=== PATIENT | male | born 1930 | race Caucasian/White ===

== ENCOUNTER 2016-08-11 17:32 | Inpatient (IN) | payer MEDICARE ==
[~2016-08-11] VITALS: Ht 172.7 cm; Wt 82.3 kg
[2016-08-11 17:40] VITALS: BP 113/55; PULSE 87; RESP 20; O2SAT 86
[2016-08-11 18:05] LABS: BASOPHILS % (AUTO) 0.4 % (0-3); EOSINOPHILS % (AUTO) 1.3 % (0-5); MONOCYTES % (AUTO) 7.7 % (4-12); Mean Corpuscular Hemoglobin 33.6 pg (27.0-35.0); NEUTROPHILS % (AUTO) 63.7 % (40-74); Platelet Count 305 bil/L (150-400)
--- NOTE | 2016-08-11 18:09 | ED.REPORT ---
HPI-Chest Pain 40 and Over Date of Service Aug 11, 2016 ED Provider: Jack Barrera DO 85-year-old male presents via EMS for evaluation of chest pain. Initially Dr. Lee Ceballos took report from the medics. Evidently Mr. Paiz had severe substernal chest pain to the point were nearly brought him to tears. EMS administered IV fentanyl and he presented the emergency department essentially pain-free. He was however quite sedate due to the fentanyl. EKG on presentation is highly suspicious for acute ischemia with diffuse ST depression. Dr. Ceballos will be going off shift at 6 PM so therefore I will be managing the case from here. Evidently Mr. Paiz has a pulsed form that shows that he is a DO NOT RESUSCITATE. It also documents that he has chosen to have comfort measures only. I will discuss this with him and his family as well. Pain onset 4 days ago, the patient went 3 days without symptoms, and then they showed up again today. Patient reports that symptoms originally onset in April or March. Pain is described as burning and fire on the inside. Pain is exacerbated by pressing on the patient's chest. Associated symptoms include productive cough. The patient has not had symptoms like this in the past. He visited his doctor 1 week ago and had EKG and XRay performed. Nursing Notes Stated Complaint: CHEST PAIN Chief Complaint: Chest Pain Nursing Notes Reviewed: Yes Allergies: Coded Allergies: No Known Allergies (Unverified , 08/11/16) Scheduled Metoprolol Tartrate (Metoprolol Tartrate) 100 Mg Tablet 100 MG PO BID Omeprazole (Omeprazole) 20 Mg Capsule. 20 MG PO DAILY General Time Seen by MD: 17:52 Chief Complaint Chest pain Hx Obtained From: Patient, Daughter, EMS Arrived By: Ambulance Sudden in Onset?: Yes Onset Occurred: 4 days ago Symptom Duration: Since onset Severity: Current: Moderate Severity: Maximum: Moderate Recent Healthcare: No recent doctor visit Similar Sx Previous: No Past Medical History Past Medical History Notes: Rosetta Bruno is healthcare provider. Past Medical History Anxiety of being in hospital. Emphysema was recently found in lungs. Daughter denies any recent pneumonia. Patient thinks that he may have had AL in the past, but this has not been confirmed. Patient had prior EKG done at [facility]. Partials, but no dentures. Reports: Hypertension Past Surgical History None reported. Social History is power of estate planning attorney. Patient is DNR and has comfort measure only in place. Alcohol Use: "Social" Other Social History: Smokeless tobacco Ambulatory Status Independent Review of Systems Review of Systems Note: Head and neck are negative. Constitutional: Denies: Chills, Fever Respiratory: Reports: Prod cough, green Cardiovascular: Reports: Chest pain Musculoskeletal: Denies: Extremity pain, Extremity swelling Complete sys rev & neg: except as marked. Physical Exam Physical Exam Notes: Initial Vital Signs Vital Signs (First) Date Time Temp Pulse Resp B/P Pulse Ox O2 Delivery O2 Flow Rate FiO2 08/11/16 17:40 35.0 87 20 113/55 86 Nasal Cannula 8 Initial VS: Reviewed General/Constitutional: Awake, Alert Distress / Hydration: Positive: Distress mild Patient does not want label folder or admission to hospital. Respiratory / Chest: Atraumatic Coarse breath sounds bilaterally. Patient has frequent cough. Patient has pulse ox of 86% and is hypoxic. Respirtory rate is 20. Patient has burning chest pain. Abdomen: Atraumatic, No guarding, No rebound Neck: Atraumatic, Non-tender Lower Extremity / Pelvis / MS: Inspection NL, No edema (No leg edema. ) Skin: Color NL, Warm, Dry Neurologic: Oriented X3, Speech NL Head / Eyes: Normocephalic, PERRL, EOMI ENT: Atraumatic, Airway patent Interpretation & Diagnostics Lab Results Interpretation Result Diagram: 08/11/16174808/11/161748 Test 08/11/16 17:49 White Blood Count 18.1th/mm3 (3.8-10.1) Red Blood Count 4.46mil/mm3 (4.40-5.80) Hemoglobin 15.0g/dL (13.8-17.2) Hematocrit 44.6% (41.0-50.0) Mean Corpuscular Volume 100.0fL (81-100) Mean Corpuscular Hemoglobin 33.6pg (27.0-35.0) Mean Corpuscular Hemoglobin Concent 33.6% (32.0-37.0) Red Cell Distribution Width 12.6% (12.3-15.4) Platelet Count 305bil/L (150-400) Neutrophils (%) (Auto) 63.7% (40-74) Lymphocytes (%) (Auto) 26.6% (14-46) Monocytes (%) (Auto) 7.7% (4-12) Eosinophils (%) (Auto) 1.3% (0-5) Basophils (%) (Auto) 0.4% (0-3) D-Dimer 57.2mg/L FEU (<0.50) Sodium Level 137mEq/L (134-144) Potassium Level 4.9mEq/L (3.5-5.2) Chloride Level 101mEq/L (97-108) Carbon Dioxide Level 19mmol/L (18-29) Blood Urea Nitrogen 14mg/dL (8-27) Creatinine 1.12mg/dL (0.76-1.27) Estimat Glomerular Filtration Rate 67mL/min (>59) Glucose Level 174mg/dL (60-99) Hemoglobin A1c 5.8% (4.8-5.6) Calcium Level 9.3mg/dL (8.5-10.1) Magnesium Level 2.2mg/dL (1.6-2.6) Total Bilirubin 0.7mg/dL (0.0-1.2) Aspartate Amino Transf (AST/SGOT) 48U/L (0-50) Alanine Aminotransferase (ALT/SGPT) 37U/L (0-44) Alkaline Phosphatase 99U/L (25-160) Troponin T 0.055ug/L (0.0-0.011) Pro-B-Type Natriuretic Peptide 3096pg/mL (0-486) Total Protein 7.8g/dL (6.4-8.4) Albumin 3.6g/dL (3.4-5.0) ECG Interpretation ECG Interpretation: Rate is 89. Sinus rythm. Diffuse ST depression. Lateral leads. Time: 18:06 Interpreted by: ED physician X-Ray Chest Interpretation Chest Xray Interpretation: ED Physician Wet Read: IMPRESSION: Middle lobe pneumonia. 08/11/2016, 1827 Radiologist Interpretation: IMPRESSION: 1. Diffuse interstitial opacities which may be associated with fluid overload. 2. Focal right basilar pulmonary radiopacities suspicious for aspiration/infection. Short interval followup is recommended with resolution of the patient's symptoms to ensure there is no underlying pulmonary pathology. Dictated by: Shireen Kinsey M.D. on 08/11/2016 at 18:21 Approved by: Shireen Kinsey M.D. on 08/11/2016 at 18:30 Interpretation / Wet Read by: Wet read ED physician, Interpret - Radiologist Procedures Intubation Procedure Performed by: ED physician Consent / Setup / Site Prep: Informed consent provided, Consent from patient , Consent from spouse, Time-out performed, Hand hygiene observed Patient Position: Neutral position Blade / ET Tube / Route: Mac, ET tube cuffed (7.5) Procedural Sedation/Analgesia: Sedation: Etomidate, Sedation: Versed, Analgesia: Fentanyl Neuromuscular Agent: Succinylcholine ET Confirmation: Direct visualization, BS equal, End tidal CO2 device, Rising O2 sat Secured / Marked: ET tube device, Adhesive tape, Tube marked at teeth Complications: None Post-Procedure: Tolerated procedure well Re-Eval/Medical Decision Med Decision/Clinical Course Mr. Melecio Paiz presented to the emergency department in acute respiratory distress. Associated symptoms include severe left sided chest pain. He was found to have evidence of a non-STEMI, pneumonia and possibly pulmonary emboli or lung cancer. He came in with a POLST form is DO NOT RESUSCITATE and DO NOT INTUBATE. Essentially comfort measures. IV opiates were given and he was initially had some semblance of pain control however the pain returned with a vengeance. He was treated with antibiotics, heparin and opitates and duonebs. His work of breathing increased severely and he seemed to be suffering significantly. After discussing with his and his daughter they have decided to rescind his pulsed form. They asked me to intubate Mr. Paiz. I asked him if this was okay and he verbalized yes. He was rapid sequence intubated without difficulty. Symmetric breath sounds. Good color change on CO2 monitor. However shortly after intubating he suffered a V. tach and then a pulseless electrical activity arrest. He was initially defibrillated followed by doses of atropine and epinephrine. Family was adamant no chest compressions and we honored this as it was consistent with Mr. Paiz's. Wishes. Family was brought back. They were there with him up to the end. He had no return of spontaneous circulation in spite of epinephrine and atropine. He was in a PE a disorganized rhythm with a rate of about 30 with no pulses. He was pronounced . Cause of pneumonia possible PE and non-STEMI. Source of Hx: Old records, EMS Time of Eval: 18:21 Re-Evaluation/Progress Note: Explained plan to treat for infamzema. Patient understands and agrees with the plan. Explained plan to keep patient informed about every decision made. Explained plan to give more fentanyl. Explained plan for admission. Time of Eval: 18:47 Re-Evaluation/Progress Note: Rechecked patient, explained test results, diagnosis, and plan for asdmission. Patient understands and agrees with the plan. All questions addressed. Patient reiterated that they do not want label folder or CPR, but will recieve medical treatment. Time of Eval: 19:32 Re-Evaluation/Progress Note: Rechecked patient who is in pain. Patient is given IV pain relief. Explained plan to potentially intubate patient after pulse form with DNR is analysed. Time of Eval: 19:45 Re-Evaluation/Progress Note: Rechecked patient who looks improved. Time of Eval: 21:26 Re-Evaluation/Progress Note: Patient was intubated, suffered V tach arrest, followed by pulses of electric activity, and is now . Family was brought to bedside and informed of the care that was provided. Time of : 2114. Consultation #1: Referral / Consult Name: Renny Land MD Call Returned at: 19:19 Teacher Asst: Agrees with eval, Agrees with plan, Accepts admit Note: Discussed patient case with Dr. Land who accepts patient admit. Consultation #2: Call Returned at: 19:46 Note: Discussed patient case with Dr. Land who agrees with plan to hold off on intubation. Counseled Regarding: Diagnosis, Lab results, Need for follow-up, Need for admission Discharge & Departure Primary Impression: Cardiopulmonary arrest Additional Impressions: Pneumonia Pneumonia type: due to unspecified organism Laterality: right Lung location : middle lobe of lung Qualified Code: J18.1 - Lobar pneumonia, unspecified organism Non-STEMI (non-ST elevated myocardial infarction) Respiratory failure requiring intubation Disposition: Discharge Condition All VS Reviewed: Yes Condition: Referrals: [facility] Crit Care Except Billable Proc Time Spent: 75-104 minutes Services Performed: Patient management by me, Time spent at bedside, Reviewing test results, Reviewing imaging, Discussing patient care, Documentation in record, Time with fam/surrogate, Other Scribe Attestation Portions of this note were transcribed by Rakesh Reynolds. IDr. Barrera personally performed the history, physical exam and medical decision-making; I reviewed and confirmed the accuracy of the information in the transcribed note. Signed by: Rigo Diaz, 08/11/2016, 0204. copies to: [facility] Jack Barrera DO Aug 11, 2016 18:09 Rakesh Reynolds Aug 11, 2016 18:21
[2016-08-11 18:17] VITALS: BP 124/91; PULSE 97; RESP 19; O2SAT 97
[2016-08-11] MEDS ORDERED: MethylprednisoLONE Sodium Succinate 62.5 mg/mL 2 mL Inj IVPUSH ONE (18:25)
[2016-08-11] MEDS ORDERED: fentaNYL-PF 50 mCg/mL 2 mL Inj IVPUSH PRN (18:25)
[2016-08-11] MEDS ORDERED: Albuterol-Ipratropium 3 mL Inhalation Solution NEB ONE (18:25)
[2016-08-11 18:30] LABS: Magnesium 2.2 mg/dL (1.6-2.6)
[2016-08-11] MEDS ORDERED: Azithromycin Inj 500 MG in Dextrose 5% w/Vial Mate 250 ML IV ONE (18:30)
[2016-08-11] MEDS ORDERED: cefTRIAXone Inj 2,000 MG in Dextrose 5% Minibag Plus 50 ML IV ONE (18:30)
--- NOTE | 2016-08-11 18:31 | DRSVH ---
PROCEDURE: X-RAY CHEST ONE VIEW, PORTABLE ([id number]) INDICATIONS: chest pain TECHNIQUE: One view of the chest was acquired. COMPARISON: [facility], , CHEST 2VW, 08/30/2014, 12:03. FINDINGS: Surgical changes and devices: None. Lungs and pleura: There are diffuse interstitial opacities. Focal pulmonary radiopacities are present at the right lung base. Mediastinum: Mediastinal contours appear normal. Heart size is normal. Bones and chest wall: No suspicious bony lesions. Overlying soft tissues appear unremarkable. IMPRESSION: 1. Diffuse interstitial opacities which may be associated with fluid overload. 2. Focal right basilar pulmonary radiopacities suspicious for aspiration/infection. Short interval fo llowup is recommended with resolution of the patient's symptoms to ensure there is no underlying pulm onary pathology. Dictated by: Shireen Kinsey M.D. on 08/11/2016 at 18:21 Approved by: Shireen Kinsey M.D. on 08/11/2016 at 18:30
[2016-08-11 18:35] LABS: TROPONIN T 0.055 ug/L (0.0-0.011)
[2016-08-11] MEDS ORDERED: Heparin 5,000 Unit/mL Inj IVPUSH PRN (18:55)
[2016-08-11] MEDS ORDERED: Heparin 25K Unit/500mL 0.45 NS 25,000 UNIT in IV Premix 1 EACH IV SCH (18:55)
[2016-08-11 18:59] VITALS: PULSE 98; RESP 22; O2SAT 90
[2016-08-11] MEDS ORDERED: HYDROmorphone 0.5 mg/0.5 mL iSecure Syringe IVPUSH PRN (19:30)
[2016-08-11] MEDS ORDERED: Ondansetron 2 mg/mL 2 mL Inj IVPUSH PRN ×2 (19:30→19:35)
[2016-08-11] MEDS ORDERED: Polyethylene Glycol (PEG) 17 Gm Powder PO PRN (19:35)
[2016-08-11] MEDS ORDERED: Alum-Mag Hydrox-Simeth 30 mL Suspension PO PRN (19:35)
[2016-08-11] MEDS ORDERED: METO100T3 PO (19:52)
[2016-08-11] MEDS ORDERED: OMEP20CA11 PO (19:52)
[2016-08-11] MEDS ORDERED: Albuterol 2.5 mg/3 mL Inhalation Solution NEB ONE (20:05)
[2016-08-11 20:13] VITALS: PULSE 111; RESP 25; O2SAT 88
[2016-08-11] MEDS ORDERED: Heparin 1,000 Units/mL 10 mL DVT/PE Bolus Inj IVPUSH ONE (20:15)
[2016-08-11 20:22] VITALS: PULSE 120; RESP 34; O2SAT 86
[2016-08-11 20:45] VITALS: BP 90/51; PULSE 110; RESP 29; O2SAT 86
[2016-08-11] MEDS ORDERED: Vecuronium 1,000 mCg/mL 10 mL Inj ONE (20:57)
[2016-08-11] MEDS ORDERED: fentaNYL-PF 50 mCg/mL 2 mL Inj ONE (21:17)
[2016-08-11] MEDS ORDERED: EPINEPHrine 0.1 mg/mL 10 mL Syringe ONE (21:29)
[2016-08-11] MEDS ORDERED: 0.9% Sodium Chloride 10 mL Inj ONE (21:29)
[2016-08-11] MEDS ORDERED: Atropine 1 mg/10 mL (Code) Syringe ONE (21:29)
[2016-08-11] MEDS ORDERED: Succinylcholine Chloride 20 mg/mL 5 mL Inj ONE (21:29)
--- NOTE | 2016-08-11 21:51 | PCM.HPMED ---
Subjective Date of Service Aug 11, 2016 Primary Provider: Admitting Physician: Renny Land MD Primary Care Physician: Skip Attending Physician: Renny Land MD Admit Status: From the Emergency Department Chief Complaint: Chest pain History of Present Illness: 85 y/o male with a history of hypertension, anxiety and recent chest xray findings consistent with emphysema who presented to the ED via EMS in respiratory distress with the complaint of worsening chest pain. History obtained via patient's and daughter due to patient condition at time of admission. Per the family, the patient has had a persistent and non-productive cough for the past several weeks. Today his cough has been productive for green sputum and accompanied with worsening shortness of breath. Associated symptoms include increasing shortness of breath and episodes of chest tightness and anxiety that are relieved over time without intervention. Per the patient's daughter, he was evaluated by his PCP recently and was told he had chest xray findings suggestive of emphysema. She states that the patient continues to smoke and is avoids doctors. However, she states that he is relatively healthy, stays quite active and until recently was without complaint. She works as a social services analyst at a local hospital and her is a nurse. She states that she initially thought these episodes of respiratory distress and chest tightness were possible due to esophageal spasms. She states that he patient has been taking omeprazole without relief. He has described his chest pain as a burning sensation associated with pain in his arms bilaterally, diaphoresis and mild nausea. Of note, patient's daughter and also report that the patient has anxiety and a fear of hospitals. Which is why, she believes the patient has expressed his wishes for code status to be DNR/DNI. However, she states that she believes he would want intervention and states that she is his DPOA. The patient is decisional and his and daughter agree, all should be in agreement before changes are made to his code status. Patient has stated that he is DNR/DNI with comfort measures only in the past. In the ED, vitals 35.0, BP 113/55, pulse 87, RR 20, SpO2 86% on 8-10L nasal cannula. Labs significant for a troponin of 0.055, D-dimer 57.2, proBNP 3096, wbc 18.1, H/H 15.0/44.6, plts 305, sodium 137, potassium 4.9, chloride 101, bicarb 19, BUN 14, creatinine 1.12, serum glucose 174. ECG showing sinus rhythm with a rate of [address] depression in lateral leads. Chest xray with diffuse interstitial opacities suggestive of fluid overload and focal right basilar opacities suspicious for pneumonia or aspiration. Patient was started on Heparin gtt and received 2g of IV ceftriaxone as well as 500mg IV azithromycin, 125mg of IV solu-medrol, fentanyl IV pushes for pain and Duonebsx2. Review of Systems: A comprehensive review of systems was conducted with the patient and found to be negative except as above in the History of Present Illness. Allergies Coded Allergies: No Known Allergies (Unverified , 08/11/16) Home Medications Metoprolol tartrate 100mg PO BID Flovent HFA (fluticasone proprionate) 220mcg inhale 2 puff BID Excedrin extra strength 250mg/250mg/65mg (aspirin/acetaminophen/caffeine) PMH Hypertension Anxiety Possible [place] in the past, unconfirmed, prior EKG done at [facility], diagnosed recently following chest xray. Surgical History Denies Family History Denies hx of diabetes. Unable to confirm additional family history secondary to patient condition. Social History Hx Alcohol Use: No Hx Substance Use: No Smoking Status: Current Some Day Smoker (1-5 cigarettes a day several days per week, up to 1/2ppd on occasion) Living Arrangement: with Family Exam Vital Signs Vital Sign - Last Date Time Temp Pulse Resp B/P Pulse Ox O2 Delivery O2 Flow Rate FiO2 08/11/16 18:59 98 22 90 Non-Rebreather 08/11/16 18:17 124/91 7 08/11/16 17:40 35.0 Exam Gen: Pale and ill-appearing (non-toxic), elderly male in moderate respiratory distress on 10L oxymask; one word answers. HEENT: Normocephalic, atraumatic, PERRLA, no scleral icterus, oral mucosa dry, oral secretions at corners of mouth Neck: No JVD, bruits or lymphadenopathy appreciated. However, this was difficult to asses due to patient's respiratory status/use of accessory muscles. Cardiac: Somewhat distant heart tones, RRR with no murmurs or gallops heard. Lungs: Increased respiratory effort w/use of accessory muscles, lungs sounds are coarse with diffuse wheezing throughout. Abd: Soft, nondistended, patient winces some with palpation but does not appear to be in pain, bowel tones present, no organomegaly or masses. Ext: Distal pulses intact/equal bilaterally. No clubbing, cyanosis, or edema. Skin: Cool, damp, no rashes or ulcerations Neuro: Difficult to assess due to patient condition. No obvious focal deficits, moving all four extremities. Responsive and able to nod or use one answers, short phrases. Lab and Diagnostics Labs Laboratory Tests Test 08/11/16 17:49 White Blood Count 18.1th/mm3 (3.8-10.1) Red Blood Count 4.46mil/mm3 (4.40-5.80) Hemoglobin 15.0g/dL (13.8-17.2) Hematocrit 44.6% (41.0-50.0) Mean Corpuscular Volume 100.0fL (81-100) Mean Corpuscular Hemoglobin 33.6pg (27.0-35.0) Mean Corpuscular Hemoglobin Concent 33.6% (32.0-37.0) Red Cell Distribution Width 12.6% (12.3-15.4) Platelet Count 305bil/L (150-400) Neutrophils (%) (Auto) 63.7% (40-74) Lymphocytes (%) (Auto) 26.6% (14-46) Monocytes (%) (Auto) 7.7% (4-12) Eosinophils (%) (Auto) 1.3% (0-5) Basophils (%) (Auto) 0.4% (0-3) D-Dimer 57.2mg/L FEU (<0.50) Sodium Level 137mEq/L (134-144) Potassium Level 4.9mEq/L (3.5-5.2) Chloride Level 101mEq/L (97-108) Carbon Dioxide Level 19mmol/L (18-29) Blood Urea Nitrogen 14mg/dL (8-27) Creatinine 1.12mg/dL (0.76-1.27) Estimat Glomerular Filtration Rate 67mL/min (>59) Glucose Level 174mg/dL (60-99) Calcium Level 9.3mg/dL (8.5-10.1) Magnesium Level 2.2mg/dL (1.6-2.6) Total Bilirubin 0.7mg/dL (0.0-1.2) Aspartate Amino Transf (AST/SGOT) 48U/L (0-50) Alanine Aminotransferase (ALT/SGPT) 37U/L (0-44) Alkaline Phosphatase 99U/L (25-160) Troponin T 0.055ug/L (0.0-0.011) Pro-B-Type Natriuretic Peptide 3096pg/mL (0-486) Total Protein 7.8g/dL (6.4-8.4) Albumin 3.6g/dL (3.4-5.0) Result Diagram: 08/11/16 [id number] X-Rays, CTs and MRIs X-RAY CHEST ONE VIEW, PORTABLE IMPRESSION: 1. Diffuse interstitial opacities which may be associated with fluid overload. 2. Focal right basilar pulmonary radiopacities suspicious for aspiration/ infection. Short interval followup is recommended with resolution of the patient 's symptoms to ensure there is no underlying pulmonary pathology. Dictated by: Shireen Kinsey M.D. on 08/11/2016 at 18:21 Approved by: Shireen Kinsey M.D. on 08/11/2016 at 18:30 Assessment & Plan 85 y/o male with a hx of hypertension, anxiety and recent chest xray findings consistent with emphysema who presented to the ED via EMS in respiratory distress with the complaint of worsening chest pain. Admitted for further management and evaluation of pneumonia and possible NSTEMI. 1. Acute NSTEMI, poa. Active -risks: age, tobacco smoking, hypertension -no known CAD or prior hx of similar episode, but positive hx of dyspnea and exertional chest pain -EKG showing NSR w/rate 89, diffuse ST depression lateral leads. CXR findings suggestive of fluid overload and right basilar consolidation. -troponin 0.055, proBNP 3096, D-dimer 57.2, potassium 4.9, magnesium 2.2 -in ED: started on heparin gtt, IV fentanyl pushes for pain. -admit to PCC with telemetry -stat atorvastatin, metoprolol -continue heparin gtt and oral aspirin -SL nitro prn and IV morphine prn as long as BP tolerates -serial trop and EKG -NPO for possible procedures -lipid panel pending -will add TSH 2. Community acquired pneumonia, poa. Active. -Patient c/o productive cough, worsening shortness of breath, diaphoresis. -Afebrile at presentation with a WBC of 18.1 and hypoxia -Chest xray as above. -Procalcitonin pending -Will add urine antigens, resp viral PCR -Received IV ceftriaxone and azithromycin, solu-medrol and duonebs in the ED. -Continue IV antibiotics -Duonebs q4h, albuterol q2h prn -Repeat chest xray, CBC and procalcitonin in the morning 3. Elevated D-dimer, poa. Active -D-dimer 57.2 -heparin gtt as above -CT angio ordered 4. Hyperglycemia, poa. Active -Patient without prior diagnosis of diabetes. -glucose on admission 174 -HbA1c pending -CMP in the morning 5. Hx of anxiety, poa. Active -per the family, increased anxiety related to hospitals and doctors. -patient is decisional, daughter is DPOA -consider consult to palliative care if disagreement regarding CODE STATUS persists. 6. Hypertension (chronic), poa. Ongoing -continue home metoprolol 7. Hx of emphysema, poa. Ongoing. -no official diagnosis of COPD or emphysema, reportedly told of findings consistent with emphysema following recent CXR. -patient not on home oxygen or require inhalers. CODE STATUS: DNR/DNI, discussed with family. FEN: NPO DVT Prophylaxis: Pt on heparin gtt for possible NSTEMI PRN: Acetaminophen-fever/headache/mild/moderate pain Antiemetics, as needed Bowel regimen, as needed. Disposition: Patient admitted under inpatient status with expected length of stay > 2 midnights for severity of present symptoms, complexities of treatment plan and risk for adverse event. Pain Evaluation: Adequate Pain Control GI Prophylaxis: Not indicated VTE Prophylaxis: Other (heparin gtt) Resuscitation Status: DNR/DNI:Do Not Resuscitate/Intubate Attending Statement The patient was seen and examined together with Dr. Luna on 08/11 and I agree with the history, exam and plan as outlined in the note above. Magnolia Luna DO Aug 11, 2016 19:29 Renny Land MD Aug 11, 2016 23:12
--- NOTE | 2016-08-12 02:04 | PCM.DC.MEX ---
Discharge Summary Date of Service Aug 12, 2016 Dates of Hospitalization Date of Hospital Admission Aug 11, 2016 at 19:31 Date of Expiration: Aug 11, 2016 Time of Expiration: 21:15 Providers: Admitting Physician: Renny Land MD Primary Care Physician: Skip Attending Physician: Rneny Land MD Diagnosis at Time of Cardiac arrest and acute hypoxic respiratory failure. Additional Diagnosis 1. Acute NSTEMI 2. Community acquired pneumonia 3. Hyperglycemia 4. Chronic hypertension 5. Hx of emphysema Procedures XRay, CTs & MRIs X-RAY CHEST ONE VIEW, PORTABLE IMPRESSION: 1. Diffuse interstitial opacities which may be associated with fluid overload. 2. Focal right basilar pulmonary radiopacities suspicious for aspiration/ infection. Short interval followup is recommended with resolution of the patient 's symptoms to ensure there is no underlying pulmonary pathology. Dictated by: Shireen Kinsey M.D. on 08/11/2016 at 18:21 Approved by: Shireen Kinsey M.D. on 08/11/2016 at 18:30 ECG 12 Lead EKG-normal sinus rhythm with rate of 89, diffuse ST depression in lateral leads. Brief History Per admission H&P, August 11, 2016. Mr. Majano is an 85 year-old male with a history of hypertension, anxiety and recent chest xray findings consistent with emphysema who presented to the ED via EMS in respiratory distress with the complaint of worsening chest pain. History was obtained via the patient's and daughter due to patient condition at time of admission. Per the family, the patient has had a persistent and non-productive cough for the past several weeks. Today his cough has been productive for green sputum and accompanied with worsening shortness of breath. Associated symptoms include increasing shortness of breath and episodes of chest tightness and anxiety that are relieved over time without intervention. Per the patient's daughter, he was evaluated by his PCP recently and was told he had chest xray findings suggestive of emphysema. She states that the patient continues to smoke and tends to avoid doctors. However, she states that he is relatively healthy, stays quite active and until recently was without complaint. She works as a social work instructor at a local hospital and her is a nurse. She states that she initially thought these episodes of respiratory distress and chest tightness were possibly due to esophageal spasms. However, she states that the patient has been taking omeprazole without relief. Patient has described his chest pain as a burning sensation that is associated with pain in his arms bilaterally, diaphoresis and mild nausea. Of note, patient's daughter and also report that the patient has anxiety and a fear of hospitals. Which is why, she believes the patient has expressed his wishes for his code status to be DNR/DNI. However, she states that she believes he would want intervention and states that she is his DPOA. The patient is decisional and his and daughter agree, all should be in agreement before changes are made to his code status. Patient has stated that he is DNR/DNI with comfort measures only in the past. In the ED, vitals 35.0, BP 113/55, pulse 87, RR 20, SpO2 86% on 8-10L nasal cannula. Labs significant for a troponin of 0.055, D-dimer 57.2, proBNP 3096, wbc 18.1, H/H 15.0/44.6, plts 305, sodium 137, potassium 4.9, chloride 101, bicarb 19, BUN 14, creatinine 1.12, serum glucose 174. ECG showing sinus rhythm with a rate of [address] depression in lateral leads. Chest xray with diffuse interstitial opacities suggestive of fluid overload and focal right basilar opacities suspicious for pneumonia or aspiration. Patient was started on Heparin gtt and received 2g of IV ceftriaxone as well as 500mg IV azithromycin, 125mg of IV solu-medrol, fentanyl IV pushes for pain and Duonebsx2. Hospital Course 85 y/o male with a hx of hypertension, anxiety and recent chest xray findings consistent with emphysema who presented to the ED via EMS in respiratory distress with the complaint of worsening chest pain. Admitted for further management and evaluation of pneumonia and possible NSTEMI.Per the patient's family he has stated in the past that he wishes to be DNR/DNI. However, his daughter is his DPOA and states that he may want short term intervention. While the patient was still in the Emergency Department, he continued to decompensate. He was tachypneic, tachycardic and hypoxic despite 9L nonrebreather oxymask and nebulizer treatments. His work of breathing increased significantly and began to show signs of respiratory fatigue. The patient's family opted for intubation and the patient was moved to a bigger room. Per review of nursing notes: He received 5ml of succinylhchol and 100ml of etomidate , was successfully intubated and give 7ml vecoronium. After which the patient went into vfib and was shocked once before the family decided to stop resuscitation efforts and requested comfort care. He was given IV pushes of atropine and epinephrine and started on an epinephrine drip and the patient family decided to extubate. Patient at 21:15 with family at bedside. Additional diagnosis and plan prior management in the PCC. Patient in the ED prior to transfer to the floor. 1. Acute NSTEMI, present on admission. -Patient without known CAD or prior hx of similar episode, but positive hx of dyspnea and exertional chest pain. -risks: age, tobacco smoking, hypertension. -EKG showed NSR with a rate of [address] depression lateral leads. -CXR with findings suggestive of fluid overload and right basilar consolidation. -Initial labs: troponin 0.055, proBNP 3096, D-dimer 57.2, potassium 4.9, magnesium 2.2 -In the ED: patient was started on heparin gtt, IV fentanyl pushes for pain. -Plan was to admit to PCC with telemetry and start atorvastatin, metoprolol and continue heparin gtt -SL nitro prn and IV morphine prn as long as BP tolerates -Serial trop and EKG -Patient was to be NPO for possible procedures -TSH, Lipid panel ordered 2. Community acquired pneumonia, present on admission. -Patient presented with a productive cough, worsening shortness of breath, chest pain and diaphoresis. -He was afebrile at presentation with a WBC of 18.1 and hypoxia -Chest xray as above. -Procalcitonin ordered -Planned to add urine antigens, resp viral PCR -Patient received IV ceftriaxone and azithromycin, solu-medrol and duonebs in the ED. -Would have continued IV antibiotics, Duonebs q4 and albuterol q2h as needed and repeated CXR, CBC and procalcitonin. 3. Elevated D-dimer, present on admission. -D-dimer was 57.2, patient was started on a heparin drip and a CT angio was ordered. 4. Hyperglycemia, present on admission. -Patient without prior diagnosis of diabetes and serum glucose on admission of 174. -HbA1c ordered and pending at time of 5. Hx of anxiety, present on admission. -Per the family, patient has a history of anxiety and doctors as well as hospitals trigger additional anxiety. -Patient's and daughter report patient is decisional. However, patient's daughter is also his DPOA. -Family supportive and agree that all should be in agreement regarding patient' s code status. -Patient has expressed his desire to be DNR/DNI in the past. -Was considering Palliative Care consult if unable to come to a consensus regarding patient's Code status. 6. Hypertension (chronic),present on admission. -planned to continue home metoprolol 7. Hx of emphysema,present on admission. -Patient was without official diagnosis of COPD or emphysema but was reportedly told of findings consistent with emphysema following recent CXR. -Supportive therapies as above: supplemental oxygen, nebulizers Exam Test 08/11/16 17:49 White Blood Count 18.1th/mm3 (3.8-10.1) Red Blood Count 4.46mil/mm3 (4.40-5.80) Hemoglobin 15.0g/dL (13.8-17.2) Hematocrit 44.6% (41.0-50.0) Mean Corpuscular Volume 100.0fL (81-100) Mean Corpuscular Hemoglobin 33.6pg (27.0-35.0) Mean Corpuscular Hemoglobin Concent 33.6% (32.0-37.0) Red Cell Distribution Width 12.6% (12.3-15.4) Platelet Count 305bil/L (150-400) Neutrophils (%) (Auto) 63.7% (40-74) Lymphocytes (%) (Auto) 26.6% (14-46) Monocytes (%) (Auto) 7.7% (4-12) Eosinophils (%) (Auto) 1.3% (0-5) Basophils (%) (Auto) 0.4% (0-3) D-Dimer 57.2mg/L FEU (<0.50) Sodium Level 137mEq/L (134-144) Potassium Level 4.9mEq/L (3.5-5.2) Chloride Level 101mEq/L (97-108) Carbon Dioxide Level 19mmol/L (18-29) Blood Urea Nitrogen 14mg/dL (8-27) Creatinine 1.12mg/dL (0.76-1.27) Estimat Glomerular Filtration Rate 67mL/min (>59) Glucose Level 174mg/dL (60-99) Calcium Level 9.3mg/dL (8.5-10.1) Magnesium Level 2.2mg/dL (1.6-2.6) Total Bilirubin 0.7mg/dL (0.0-1.2) Aspartate Amino Transf (AST/SGOT) 48U/L (0-50) Alanine Aminotransferase (ALT/SGPT) 37U/L (0-44) Alkaline Phosphatase 99U/L (25-160) Troponin T 0.055ug/L (0.0-0.011) Pro-B-Type Natriuretic Peptide 3096pg/mL (0-486) Total Protein 7.8g/dL (6.4-8.4) Albumin 3.6g/dL (3.4-5.0) Attending Statement The patient was seen and examined together with Dr. Luna on 08/11 and I agree with the history, exam and plan as outlined in the note above. Magnolia Luna DO Aug 12, 2016 02:04 Renny Land MD Aug 12, 2016 05:54 3.6g/dL (3.4-5.0) Magnolia Luna DO Aug 12, 2016 02:04
== END 2016-08-11 21:30 | disposition expired ==
LOC: EDBD 17:32 → SED 17:32 → EDUNIT# 17:32 → PCC 19:31 → CCU 21:10
PROVIDERS: ADMIT Hospitalist; ATTEND Hospitalist
PROC: 0BH17EZ Insertion of Endotracheal Airway into Trachea, Via Natural or Artificial Opening (ICD-10-PCS; principal; 2016-08-11)
PROC: 5A2204Z Restoration of Cardiac Rhythm, Single (ICD-10-PCS; 2016-08-11)
DX: I21.4 Non-ST elevation (NSTEMI) myocardial infarction (principal); J18.9 Pneumonia, unspecified organism; I26.99 Other pulmonary embolism without acute cor pulmonale; J96.01 Acute respiratory failure with hypoxia; I46.9 Cardiac arrest, cause unspecified; Z66 Do not resuscitate; I25.2 Old myocardial infarction; Z87.891 Personal history of nicotine dependence; R73.9 Hyperglycemia, unspecified; F41.9 Anxiety disorder, unspecified; I10 Essential (primary) hypertension